=== PATIENT | female | born 1960 | race Caucasian/White ===

== ENCOUNTER 2023-05-21 11:08 | Outpatient (CLI) | payer OTHER, SELFPAY ==
--- OUTSIDE RECORDS SUMMARY | 2023-05-21 11:12 | XMS_ITS | Continuity of Care Document ---
Author Name Unknown Organization Z [facility] Address [address] [place] [address] Phone Care Team Providers Care Director Of Brand Marketing Name Role Phone Unavailable Unavailable Unavailable Advance Directives Directive Yes / No Effective Date File Name No Information Encounters Encounter Description Practice Location Reason(s) For Visit Diagnoses Date Provider Providers Copied on Encounter [facility], [address], [place], [address], [place] tel:[phone] [facility] No Information 2200 8 No Information Family History Family Member Type Diagnosis Age At Onset No Information Payers Payer name Insurance type Covered democrat ID Authoriza tion(s) No Information Social History Type Description Quantity Date Captured Comments Sex Female Smoking Status No Information Chief Complaint And Reason For Visit No Information Reason For Referral Reason For Referral No Information Plan Of Treatment Date Type Action Status No Information History Of Present Illness Encounter Date Complaint History Of Prese nt Illness No Information Functional Status Date Functional Assessmen t No Information Instructions Date Instruction Additional Infor mation No Information Assessments Type Assessment Date No Information Patient Care Teams Name Effective Dates (start - stop) Status Members No Information
== END 2023-05-21 11:09 | disposition home or self-care (01) ==
PROVIDERS: PCP Family Medicine; Visit Provider Family Medicine
DX: I10 Essential (primary) hypertension (principal); Z13.6 Encounter for screening for cardiovascular disorders
CPT/HCPCS: 80053; 80061

== ENCOUNTER 2024-06-26 10:19 | Outpatient (CLI) | payer MEDICARE, SELFPAY ==
--- OUTSIDE RECORDS SUMMARY | 2024-07-01 08:39 | XMS_ITS | Continuity of Care Document ---
Author Organization Z [facility] Address [address] [place] [address] Phone Care Team Providers Care Child Support Specialist Name Role Phone Unavailable Unavailable Unavailable Advance Directives Directive Yes / No Effective Date File Name No Information Encounters Encounter Description Practice Location Reason(s) For Visit Diagnoses Date Provider Providers Copied on Encounter Z [facility] [place], [address], [place], [address], [place] tel:[phone] [facility] No Information Feb-2 2200 8 No Information Family History Family Member Type Diagnosis Age At Onset No Information Payers Payer name Insurance type Covered constitution party ID Authoriza tion(s) No Information Social History Type Description Quantity Date Captured Comments Sex Female Smoking Status No Information Chief Complaint And Reason For Visit No Information Reason For Referral Reason For Referral No Information History Of Present Illness Encounter Date Complaint History Of Prese nt Illness No Information Functional Status Date Functional Assessmen t No Information Instructions Date Instruction Additional Infor mation No Information Assessments Type Assessment Date No Information Patient Care Teams Name Effective Dates (start - stop) Status Members No Information
--- OUTSIDE RECORDS SUMMARY | 2024-07-01 08:39 | XMS_ITS | Clinical Summary ---
Author Organization [facility] Address [place], [place] [address] Care Team Providers Care Weapons Specialist Name Role Phone Clinic, [facility] Allergies Active Allergy Reactions Criticality Noted Date Comments Codeine Rash 11/22/2007 Acetaminophen Hives 11/22/2007 Medications Medication Sig Dispensed Refills Start Date End Date Status ibuprofen (ADVIL; MOTRIN) 800 mg tablet Take 1 tablet by mouth 3 times daily if needed. 0 09/04/2011 Active albuterol HFA 90 mcg/actuation inhalerIndications:Aileen ctive airway disease, mild persistent, with acute exacerbation Inhale 2 Puffs by mouth every 4 hours if needed. 1 Inhaler 09/13/2018 Active Active Problems Problem Noted Date Diagnosed Date Tobacco use disorder 11/22/2007 Family History Medical History Relation Name Comments Good Health Brother x2 Other Father COPD Cancer-breast Maternal Aunt Cancer Maternal Grandfather lung Hypertension Maternal Grandmother Good Health Mother Hypertension Mother Diabetes Paternal Aunt Diabetes Paternal Uncle Good Health Sister x3 Relation Name Status Comments Brother Father (Age 52) COPD Maternal Aunt Maternal Grandfather Maternal Grandmother Mother Alive Paternal Aunt Paternal Uncle Sister Social History Tobacco Use Types Packs/Day Years Used Date Smoking Tobacco: Every Day Cigarettes Smokeless Tobacco: Former Tobacco Cessation:Ready to Q uit: Yes; Counseling Given: Yes Comments:pt declined Alcohol Use Standard Drinks/Week Comments Yes 0 (1 standard drink = 0.6 oz pur e alcohol) social Sex and Gender Information Value Date Recorded Sex Assigned at Not on file Gender Identity Not on file Sexual Orientation Not on file Obstetrics History Last Filed Vital Signs Vital Sign Reading Time Taken Comments Blood Pressure 120/78 02/29/2016 2:31 PM CDT Pulse 78 08/17/2016 2:48 PM CDT Temperature 36.8 ??C (98.3 ??F) 08/17/2016 2:48 PM CD T Respiratory Rate 24 02/29/2016 2:31 PM CDT Oxygen Saturation 99% 08/17/2016 2:48 PM CDT Inhaled Oxygen Concentration - - Weight 84.4 kg (186 lb 1.6 oz) 08/17/2016 2:48 P M CDT Height 156.2 cm (5' 1.5) 02/29/2016 2:31 PM CDT Body Mass Index 34.59 02/29/2016 2:31 PM CDT Plan of Treatment Health Maintenance Due Date Last Done Comments Tdap 1970 Depression screening for age 12+ 1971 HIV for age 15-65 1974 Hepatitis C screening for age 18-79 1977 Tetanus booster 1979 Pap test for age 21-65 1980 Colonoscopy through age 75 2004 Mammogram for age 45-75 2004 Zoster (shingles) series for age 50+ (1 of 2) 2009 Lipids for age 45-75 08/25/2013 08/25/2008 BMI (ht and wt on same day) for age 18+ 02/28/2017 0 02/29/2016, 02/04/2016 COVID-19 vaccine series ( - 2022-24 season) 2023 DEXA/DXA scan for age 65+ 2024 Pneumococcal series for age 65+ (1 of 1 - PCV) 2024 Influenza for age 65+ 07/20/2024 Procedures Procedure Name Priority Date/Time Associated Diagnosis Comments LIPID PANEL Routine 08/25/2008 9:42 AM CDT Unspecified Closed Fracture of Ankle from Last 3 Months or Most Recently Relevant to Health Maintenance Results * LIPID PANEL (08/25/2008 9:42 AM CDT) CHOLESTEROL,TOTAL 148 110 - 199 mg/dL [facility] TRIGLYCERIDES 135 <150 mg/dL [facility] HDL CHOLESTEROL 61 >40 mg/dL [facility] CHOL/HDL RATIO 2.43 <4.51 [facility] LDL CHOLESTEROL 60 <131 mg/dL [facility] PATIENT STATUS Fasting [facility] Blood specimen (specimen) BLOOD SPECIMEN / Unknown 08/25/2008 9:42 AM CDT 08/25/2008 9:36 AM CDT Dominick Stock MD CHEMISTRY [facility] 639 Count Includes [address] [place] [address] from Last 3 Months or Most Recently Relevant to Health Maintenance Care Teams Weapons Specialist Relationship Specialty Start Date End Date Clinic, [address] [address] PCP - General 11/26/14
== END 2024-06-26 10:20 | disposition home or self-care (01) ==
LOC: NFLDREF 07-01 08:38
PROVIDERS: PCP Family Medicine; Referring Provider Family Medicine; Visit Provider Family Medicine
DX: I10 Essential (primary) hypertension (principal); Z13.220 Encounter for screening for lipoid disorders
CPT/HCPCS: 80053; 80061

== ENCOUNTER 2025-08-18 13:35 | Outpatient (CLI) | payer MEDICARE, SELFPAY | END 2025-08-18 13:36 | disposition home or self-care (01) | LOC: NFLDREF 13:36 | PROVIDERS: PCP Family Medicine; Visit Provider Family Medicine | DX: I10 Essential (primary) hypertension (principal) | CPT/HCPCS: 80053; 80061 ==

== ENCOUNTER 2025-09-03 10:05 | Outpatient (CLI) | payer MEDICARE, SELFPAY ==
--- NOTE | 2025-09-03 11:29 | P.ANES_ITS ---
Anesthesia Charges Start Date/Time Anesthesia Start Date: 09/03/25 Anesthesia Start Time: 11:05 Stop Date/Time Anesthesia Stop Date: 09/03/25 Anesthesia Stop Time: 11:25 Coding CPT Codes CPT Codes: SHYAMS LWR INTST NDSC NOS - 59781 ([id number]) P2 - PATIENT W/MILD SYST DISEASE, QZ - PROFESSOR CRIMINAL JUSTICE SVC W/O MANAGER SOCIAL MEDIA BY
--- NOTE | 2025-09-03 11:29 | W.ANESCHARGE ---
Anesthesia Charges Start Date/Time Anesthesia Start Date: 09/03/25 Anesthesia Start Time: 11:05 Stop Date/Time Anesthesia Stop Date: 09/03/25 Anesthesia Stop Time: 11:25 Coding CPT Codes CPT Codes: SHYAMS LWR INTST NDSC NOS - 14234 ([id number]) P2 - PATIENT W/MILD SYST DISEASE, QZ - MAINTENANCE CONTROLLER SVC W/O REHABILITATOR BY
== END 2025-09-03 10:06 | disposition home or self-care (01) ==
LOC: OP CLINIC 10:07
PROVIDERS: PCP Family Medicine; Visit Provider Internal Medicine
DX: Z12.11 Encounter for screening for malignant neoplasm of colon (principal); D12.3 Benign neoplasm of transverse colon; K57.30 Diverticulosis of large intestine without perforation or abscess without bleeding
CPT/HCPCS: 00811; 45380; 88305; J2704

== ENCOUNTER 2025-11-04 14:15 | Outpatient (CLI) | payer MEDICARE, SELFPAY ==
--- NOTE | 2025-11-04 14:30 | CRLHL7_ITS ---
For Patients: As a result of the Century Cures Act, medical imaging exams and procedure reports are released immediately into your electronic medical record. You may view this report before your referring provider. If you have questions, please contact your health care provider. DXA BONE MINERAL DENSITY STUDY Reason for exam: Asymptomatic menopausal state. Current height (in): 62. Weight (lb): 200. Menopause age: 49. Ethnicity: White. 1. Have you had a previous hip or vertebral fracture? No. 2. Have you had any fractures during your adult life which did not result from significant trauma (e.g., auto accident)? Yes. 3. Did either of your parents have a hip fracture? No. 4. Do you smoke? Yes. 5. Have you ever taken Glucocorticoids? Yes. 6. Do you have rheumatoid arthritis? No. 7. Do you have secondary osteoporosis? No. 8. Do you drink 3 or more alcoholic drinks per day? No. 9. Are you being treated for osteoporosis? No. 10. Have you ever taken any of the following medications: Actonel, Evista, Fosamax, Miacalcin, Reclast, Boniva, Forteo, HRT (i.e. estrogen/hormone therapy), Protelos, Prolia, Vitamin D, Calcium, other ??? please specify. ANSWER: No. 11. Do you have any of the following medical conditions: Anorexia or bulimia, asthma or emphysema, end stage renal disease, hyperparathyroidism, any seizure disorders, cancer, inflammatory bowel diseases, hysterectomy, other ??? please specify. ANSWER: Yes, asthma or emphysema. 12. What was your maximum height (inches)? 62. 13. Do you perform weight bearing exercise regularly? No. 14. Do you regularly consume dairy products? Yes. 15. Do you drink caffeinated beverages? Yes. 16. At what age did your period start? 12. 17. Are you premenopausal? No. 18. How many full-term pregnancies have you had? 3. 19. Have you ever missed your period for more than 6 months in a row (not including or menopause)? No. TECHNIQUE: Bone mineral density study was performed using the [employer]. FINDINGS: The results of the study expressed as bone mineral density (BMD) are as follows: Lumbar spine L1 to L4: BMD: 0.928 g/cm2. T-score: -1.1. Z-score: 0.8. Neck Left: BMD: 0.700 g/cm2. T-score: -1.3. Z-score: 0.3. Right: BMD: 0.695 g/cm2. T-score: -1.4. Z-score: 0.2. Total Left: BMD: 0.825 g/cm2. T-score: -1.0. Z-score: 0.4. Right: BMD: 0.802 g/cm2. T-score: -1.1. Z-score: 0.2. IMPRESSION: Osteopenia. *Comparison exams done prior to 04/2020 were performed on different unit, [employer]. FRAX 10-year Fracture Risk Major Osteoporotic Fracture: 21% Hip Fracture: 4.2% Reported Risk Factors: [place] () Neck BMD=0.695, BMI=36.6, previous fracture, smoking, glucocorticoids Ric Jones M.D. Diagnostic Radiologist [email or web address]/Dictated by: Ric Jones MD @ 11/05/2025 8:52:00 AM (Electronically Signed)
--- NOTE | 2025-11-04 15:00 | CRLHL7_ITS ---
For Patients: As a result of the Cures Act, medical imaging exams and procedure reports are released immediately into your electronic medical record. You may view this report before your referring provider. If you have questions, please contact your health care provider. BILATERAL DIGITAL SCREENING MAMMOGRAM WITH COMPUTER-AIDED DETECTION AND TOMOSYNTHESIS CLINICAL HISTORY: Routine screening exam. COMPARISON: None. TECHNIQUE: Digital mammogram in CC and MLO projections including computer-aided detection (CAD). Tomosynthesis was used in this interpretation. BREAST COMPOSITION: There are scattered areas of fibroglandular density. FINDINGS: RIGHT Breast: Nodular density upper inner quadrant. LEFT Breast: No suspicious findings. IMPRESSION: RIGHT breast asymmetry/mass. RECOMMENDATIONS: Additional mammographic views of the RIGHT breast including 3D spot compression CC/MLO and 3D true lateral. RIGHT breast ultrasound may also be required. The [facility] will contact the patient. A lay language report of this examination will be provided to the patient. BI-RADS Category 0: Incomplete: Need Additional Imaging Evaluation Dictated by Ric Jones MD @ 11/05/2025 9:59:06 AM /sp SP/Dictated by: Ric Jones MD @ 11/05/2025 9:59:00 AM (Electronically Signed)
== END 2025-11-04 14:16 | disposition home or self-care (01) ==
LOC: RAD 14:16
PROVIDERS: PCP Family Medicine; Visit Provider Family Medicine
DX: Z12.31 Encounter for screening mammogram for malignant neoplasm of breast (principal); N63.10 Unspecified lump in the right breast, unspecified quadrant; Z78.0 Asymptomatic menopausal state; M85.89 Other specified disorders of bone density and structure, multiple sites
CPT/HCPCS: 77063; 77067; 77080